=== PATIENT | male | born 1975 | race Caucasian/White ===

== ENCOUNTER 2017-10-14 17:54 | Inpatient (IN) | payer BC ==
[~2017-10-14] VITALS: Ht 177.8 cm; Wt 97.3 kg
[2017-10-14 21:07] LABS: HEMATOCRIT 50.8 % (38.0-50.0); HEMOGLOBIN 18.1 G/DL (12.5-16.6); MCHC 35.6 G/DL (30.0-36.0); MCV 87.1 FL (86-99); PLATELET COUNT 302 K/uL (156-360); RBC DIS.WIDTH-CV 12.5 % (11.8-14.6); RBC DIS.WIDTH-SD 39.5 % (39-53); RED BLOOD COUNT 5.83 M/uL (4.00-5.50); WHITE BLOOD COUNT 19.9 K/uL (4.1-10.2)
[2017-10-14 21:17] LABS: CHLORIDE 108 mEq/L (99-109); POTASSIUM 5.2 mEq/L (3.7-5.4); SODIUM 138 mEq/L (136-147)
[2017-10-14 21:19] LABS: GLUCOSE 117 mg/dL (70-99); TOTAL PROTEIN 8.5 g/dL (6.4-8.3)
[2017-10-14 21:21] LABS: TOTAL BILIRUBIN 0.8 mg/dL (0.0-1.0)
[2017-10-14 21:23] LABS: ALKALINE PHOSPHATASE 47 IU/L (3-129); CREATININE 2.2 mg/dL (0.6-1.3); GFR ESTIMATE (CALCULATED) 35 mL/min/ (58.99-99999)
[2017-10-14 21:24] LABS: UREA NITROGEN (BUN) 19 mg/dL (9-23)
[2017-10-14 21:25] LABS: AST (GOT) 31 IU/L (2-34)
[2017-10-14 21:26] LABS: ALT (GPT) 44 IU/L (3-49)
[2017-10-14] MEDS ORDERED: OXYCONTIN30 MG PO (22:32)
[2017-10-14] MEDS ORDERED: OXYCODONE HCL10 MG PO (22:32)
[2017-10-14] MEDS ORDERED: ASCORBIC ACID500 M3 PO (22:33)
[2017-10-14] MEDS ORDERED: MELATONIN5 M1 PO (22:33)
[2017-10-14] MEDS ORDERED: ARTHROTEC 751 TABLET PO (22:33)
[2017-10-15 01:33] LABS: APPEARANCE CLOUDY ((CLEAR)); BILIRUBIN NEGATIVE; BLOOD NEGATIVE; COLOR AMBER ((YELLOW)); GLUCOSE (STRIP) NEGATIVE; KETONES NEGATIVE; LEUKOCYTES NEGATIVE; NITRITE NEGATIVE; PROTEIN (STRIP) 100; UROBILINOGEN 0.2 MG/DL (0.2-1.0)
[2017-10-15 01:40] LABS: BACTERIA RARE /HPF; EPITHELIAL CELLS NONE SEEN /HPF; HYALINE CASTS 20-30 /LPF; MUCUS 2+ /LPF; RED BLOOD CELLS 0-5 /HPF (0-5); UCUL ADDED? NO; WHITE BLOOD CELLS 0-5 /HPF (0-5)
[2017-10-15 01:50] LABS: HEMATOCRIT 44.8 % (38.0-50.0); HEMOGLOBIN 15.2 G/DL (12.5-16.6); MCH 30.2 PG (29.0-34.0); MCHC 33.9 G/DL (30.0-36.0); MCV 88.9 FL (86-99); PLATELET COUNT 237 K/uL (156-360); RBC DIS.WIDTH-CV 12.5 % (11.8-14.6); RBC DIS.WIDTH-SD 40.6 % (39-53); RED BLOOD COUNT 5.04 M/uL (4.00-5.50); WHITE BLOOD COUNT 16.4 K/uL (4.1-10.2)
[2017-10-15 03:23] VITALS: BP 103/57
[2017-10-15 05:33] LABS: C DIFF TOXIN NEGATIVE (NEGATIVE)
[2017-10-15 06:40] VITALS: BP 114/58
[2017-10-15 07:40] LABS: CHLORIDE 112 MEQ/L (99-109); POTASSIUM 4.5 MEQ/L (3.7-5.4); SODIUM 141 MEQ/L (136-147)
[2017-10-15 07:46] LABS: CREATININE 1.3 MG/DL (0.6-1.3); GFR ESTIMATE (CALCULATED) > 59 mL/min/ (58.99-99999); GLUCOSE 109 mg/dL (70-99); UREA NITROGEN (BUN) 22 mg/dL (9-23)
[2017-10-15 09:46] LABS: HEMATOCRIT 42.9 % (38.0-50.0); HEMOGLOBIN 14.5 G/DL (12.5-16.6); MCH 30.1 PG (29.0-34.0); MCHC 33.8 G/DL (30.0-36.0); MCV 89.2 FL (86-99); PLATELET COUNT 264 K/uL (156-360); RBC DIS.WIDTH-CV 12.7 % (11.8-14.6); RBC DIS.WIDTH-SD 41.9 % (39-53); RED BLOOD COUNT 4.81 M/uL (4.00-5.50); WHITE BLOOD COUNT 14.9 K/uL (4.1-10.2)
[2017-10-15 15:57] VITALS: BP 94/55
[2017-10-16 00:25] VITALS: BP 110/76
[2017-10-16 06:13] LABS: CHLORIDE 113 MEQ/L (99-109); GFR ESTIMATE (CALCULATED) > 59 mL/min/ (58.99-99999); GLUCOSE 88 mg/dL (70-99); POTASSIUM 3.8 MEQ/L (3.7-5.4); SODIUM 141 MEQ/L (136-147); UREA NITROGEN (BUN) 12 mg/dL (9-23)
[2017-10-16 06:19] LABS: CREATININE 0.8 MG/DL (0.6-1.3)
[2017-10-16 07:44] VITALS: BP 114/68
[2017-10-16 15:55] VITALS: BP 118/73
[2017-10-16 22:39] VITALS: BP 128/78
[2017-10-17 07:58] LABS: BASOPHIL (%) 0.5 % (0-1); EOSINOPHIL COUNT 0.3 K/uL (0-0.3); HEMATOCRIT 39.3 % (38.0-50.0); HEMOGLOBIN 13.2 G/DL (12.5-16.6); IMMATURE GRANULOCYTE (%) 0.3 % (0.0-0.7); LYMPHOCYTE (%) 41.3 % (15-42); LYMPHOCYTE COUNT 3.3 K/uL (1.0-2.8); MCH 29.7 PG (29.0-34.0); MCHC 33.6 G/DL (30.0-36.0); MCV 88.5 FL (86-99); MONOCYTE COUNT 0.7 K/uL (0-0.8); NEUTROPHIL (%) 44.9 % (45-76); NEUTROPHIL COUNT 3.6 K/uL (1.8-6.4); PLATELET COUNT 194 K/uL (156-360); RBC DIS.WIDTH-CV 12.2 % (11.8-14.6); RBC DIS.WIDTH-SD 39.7 % (39-53); RED BLOOD COUNT 4.44 M/uL (4.00-5.50)
[2017-10-17 08:25] VITALS: BP 118/72
[2017-10-17 08:37] LABS: CHLORIDE 110 MEQ/L (99-109); CREATININE 0.8 MG/DL (0.6-1.3); GFR ESTIMATE (CALCULATED) > 59 mL/min/ (58.99-99999); GLUCOSE 96 mg/dL (70-99); POTASSIUM 4.1 MEQ/L (3.7-5.4); SODIUM 141 MEQ/L (136-147); UREA NITROGEN (BUN) 8 mg/dL (9-23)
[2017-10-17] MEDS ORDERED: FAMOTIDINE20 MG PO (09:15)
[2017-10-17] MEDS ORDERED: LEVAQUIN750 MG PO (09:16)
[2017-10-17] MEDS ORDERED: FLAGYL500 MG PO (09:16)
== END 2017-10-17 12:40 | disposition home or self-care (01) | DRG 194 ==
LOC: EME 17:54 → EDOF 10-15 00:57 → 5EAST 10-15 00:57 → ENRESERV 10-15 00:58 → 5EAST 10-15 01:48 → ENPENDDIS 10-17 → 5EAST 10-17 12:40
PROVIDERS: Hospitalist; Internal Medicine; Nurse Practitioner Family
DX: J18.9 Pneumonia, unspecified organism (principal); N17.9 Acute kidney failure, unspecified; E86.0 Dehydration; K52.9 Noninfective gastroenteritis and colitis, unspecified; I95.9 Hypotension, unspecified; G89.29 Other chronic pain; M54.2 Cervicalgia; M25.559 Pain in unspecified hip; R12 Heartburn; H93.19 Tinnitus, unspecified ear; F17.200 Nicotine dependence, unspecified, uncomplicated; Z83.3 Family history of diabetes mellitus
CPT/HCPCS: 71046; 80048; 80053; 81003; 83605; 85025; 85027; 87040; 87177; 87329; 87493; 87502; 99281; 99285; J0456; J0696; J1650; J1956; J7030; S0028; S0030